=== PATIENT | female | born 1945 | race Two or more races ===

== ENCOUNTER 2022-11-21 09:57 | Inpatient (IN) | payer OTHER ==
[~2022-11-21] VITALS: Ht 165.1 cm; Wt 85.3 kg
[2022-11-26] MEDS ORDERED: LOSARTAN POTAS100 MG (09:29)
[2022-11-26] MEDS ORDERED: LATANOPROST2.5 ML (09:29)
[2022-11-26] MEDS ORDERED: FLONASE16 GM (09:29)
[2022-11-26] MEDS ORDERED: DEXLANSOPRAZOLE60 MG (09:29)
[2022-11-26] MEDS ORDERED: HYDROCHLOROTHIA25 MG (09:29)
[2022-11-26] MEDS ORDERED: FAMOTIDINE20 MG (09:29)
[2022-11-26] MEDS ORDERED: ATORVASTATIN CA20 MG (09:29)
[2022-11-26] MEDS ORDERED: MONTELUKAST SOD10 MG (09:29)
[2022-11-28] MEDS ORDERED: LEVSIN/SL0.125 MG SL (18:00)
[2022-11-28] MEDS ORDERED: INTESTINEX680 M1 PO (18:00)
[2022-11-28] MEDS ORDERED: NEURONTIN300 MG PO (18:00)
== END 2022-11-28 18:28 | disposition home or self-care (01) | DRG 331 ==
LOC: O/R 11-25 06:00 → SURH 11-25 07:00
PROVIDERS: ADMIT Surgery; ATTEND Surgery
PROC: 07BB4ZZ Excision of Mesenteric Lymphatic, Percutaneous Endoscopic Approach (ICD-10-PCS; 2022-11-25)
PROC: 0DTF4ZZ Resection of Right Large Intestine, Percutaneous Endoscopic Approach (ICD-10-PCS; principal; 2022-11-25 07:00)
DX: D12.2 Benign neoplasm of ascending colon (principal); I11.9 Hypertensive heart disease without heart failure; Z20.822 Contact with and (suspected) exposure to COVID-19